=== PATIENT | male | born 1975 | race African-American/Black ===

== ENCOUNTER 2016-10-03 14:03 | Emergency (ER) | payer OTHER ==
[~2016-10-03] VITALS: Ht 167.6 cm; Wt 85.7 kg
[~2016-10-03 14:03] MED LIST: NOHOMEMEDICATIONS; NORCO 5-325 TA1 EACH PO
[2016-10-03 14:10] VITALS: BP 134/89
[2016-10-03] MEDS ORDERED: FLEXERIL PO (15:08)
[2016-10-03] MEDS ORDERED: MOBIC15 MG PO (15:08)
[2016-10-03] MEDS ORDERED: MEDROLDOSEPACK PO (15:08)
== END 2016-10-03 15:20 | disposition home or self-care (01) ==
LOC: ER 14:03
DX: S39.012A Strain of muscle, fascia and tendon of lower back, initial encounter (principal); M54.31 Sciatica, right side; V89.2XXA Person injured in unspecified motor-vehicle accident, traffic, initial encounter; Y93.89 Activity, other specified; Y92.89 Other specified places as the place of occurrence of the external cause; Y99.8 Other external cause status